=== PATIENT | female | born 1990 | race Caucasian/White ===

== ENCOUNTER 2020-07-29 09:57 | Emergency (ER) | payer OTHER ==
[~2020-07-29] VITALS: Ht 165.1 cm; Wt 62.6 kg
--- NOTE | 2020-07-29 10:30 | NUR ---
FUNERAL GREETER AT BEDSIDE FOR XRAY.
--- NOTE | 2020-07-29 11:41 | NUR ---
SEEN AND EXAMINED BY FELY MALLORY. MEDICALLY CLEARED. PROVIDED W/ CROUTCHES AND ANGELITO WRAP. STABLE CONDITION.
[2020-07-29 11:42] VITALS: BP 132/66
== END 2020-07-29 11:43 | disposition home or self-care (01) ==
LOC: ER 10:03
DX: S93.491A Sprain of other ligament of right ankle, initial encounter (principal); J45.909 Unspecified asthma, uncomplicated; W18.39XA Other fall on same level, initial encounter; Y93.39 Activity, other involving climbing, rappelling and jumping off; Y92.89 Other specified places as the place of occurrence of the external cause; Y99.8 Other external cause status
CPT/HCPCS: 73130-TC; 73610-TC